=== PATIENT | male | born 1965 | race Caucasian/White ===

== ENCOUNTER 2024-10-26 12:42 | Outpatient (CLI) | payer OTHER, SELFPAY | END 2024-10-26 12:43 | disposition home or self-care (01) | LOC: WOUND 12:43 | PROVIDERS: PCP Family Medicine; Visit Provider Nurse Practitioner Family | DX: E11.621 Type 2 diabetes mellitus with foot ulcer (principal); E11.42 Type 2 diabetes mellitus with diabetic polyneuropathy; L97.522 Non-pressure chronic ulcer of other part of left foot with fat layer exposed; M13.872 Other specified arthritis, left ankle and foot; Z79.4 Long term (current) use of insulin; Z79.84 Long term (current) use of oral hypoglycemic drugs | CPT/HCPCS: 11042; G0463 ==

== ENCOUNTER 2024-11-02 12:44 | Outpatient (CLI) | payer OTHER, SELFPAY ==
[2024-11-02 14:02] LABS: Hematocrit* 36.8 % (37.0-53.0); Hemoglobin* 11.9 gm/dL (13.5-17.5); Immature Granulocytes Abs Auto 0.01 K/uL (0.00-0.30); Immature Granulocytes Pct Auto 0.1 %; Lymphocytes Absolute Auto 1.98 K/uL (0.90-2.90); Mean Corpuscular HGB Conc 32 gm/dL (32-36); Mean Corpuscular Hemoglobin 26 pg (26-34); Mean Corpuscular Volume 82 fL (80-100); RDW Coefficient of Variation % 14.4 % (11.5-15.5); Red Blood Count* 4.50 m/uL (4.30-5.90); White Blood Count* 7.66 K/uL (4.50-11.00)
[2024-11-02 14:03] LABS: Slide Review Reflex No
[2024-11-02 14:22] LABS: Albumin* 4.3 g/dL (3.3-5.0); Chloride* 100 mmol/L (96-114); Potassium* 4.7 mmol/L (3.6-5.1); Sodium* 134 mmol/L (135-149)
[2024-11-02 14:25] LABS: Alanine Aminotransferase* 31 U/L (4-50); Aspartate Amino Transferase* 36 U/L (12-35); Blood Urea Nitrogen* 38 mg/dL (7-30); Creatinine* 1.2 mg/dL (0.5-1.5); Estimated Glomerular Filt Rate 69 ml/min
[2024-11-02 14:26] LABS: Alkaline Phosphatase* 92 U/L (40-150); Anion Gap 8 mEq/L (7-15); Bilirubin Total* 0.4 mg/dL (0.1-1.5); Calcium* 9.4 mg/dL (8.4-10.6); Carbon Dioxide* 26 mmol/L (20-32); Glucose* 197 mg/dL (60-115); Total Protein* 7.3 g/dL (6.0-8.3)
[2024-11-02 15:00] LABS: Erythrocyte SedimentationRate* 17 mm/hr (2-15)
== END 2024-11-02 12:45 | disposition home or self-care (01) ==
LOC: WOUND 12:44
PROVIDERS: PCP Family Medicine; Visit Provider Nurse Practitioner Family
DX: E11.621 Type 2 diabetes mellitus with foot ulcer (principal); E11.42 Type 2 diabetes mellitus with diabetic polyneuropathy; L97.522 Non-pressure chronic ulcer of other part of left foot with fat layer exposed; M13.872 Other specified arthritis, left ankle and foot; Z79.84 Long term (current) use of oral hypoglycemic drugs
CPT/HCPCS: 11042; 36415; 73630; 80053; 83036; 85025; 85651; 86140; 87070; 87186

== ENCOUNTER 2024-11-02 13:42 | Outpatient (CLI) | payer OTHER, SELFPAY ==
--- NOTE | 2024-11-02 14:00 | CRLHL7_ITS ---
For Patients: As a result of the Century Cures Act, medical imaging exams and procedure reports are released immediately into your electronic medical record. You may view this report before your referring provider. If you have questions, please contact your health care provider. Indication: Osteomyelitis Technique: Left foot 3 views Comparison: 07/31/2024 Findings: Vascular calcifications are present. Mild spurring at the 1st MTP joint. Midfoot alignment is normal. Calcaneal spurs. Dorsal hypertrophic change at the midfoot. No cortical destruction or periostitis. Lateral forefoot soft tissue infection with ulceration. Impression: No evidence of osteomyelitis. Dictated by Khris Adames MD @ 11/02/2024 3:20:56 PM (Electronically Signed)
== END 2024-11-02 13:43 | disposition home or self-care (01) ==
LOC: RAD 13:43
PROVIDERS: PCP Family Medicine; Visit Provider Nurse Practitioner Family
DX: E11.621 Type 2 diabetes mellitus with foot ulcer (principal)
CPT/HCPCS: 73630

== ENCOUNTER 2024-11-09 12:44 | Outpatient (CLI) | payer OTHER, SELFPAY | END 2024-11-09 12:45 | disposition home or self-care (01) | LOC: WOUND 12:44 | PROVIDERS: PCP Family Medicine; Visit Provider Nurse Practitioner Family | DX: E11.621 Type 2 diabetes mellitus with foot ulcer (principal); E11.42 Type 2 diabetes mellitus with diabetic polyneuropathy; L97.522 Non-pressure chronic ulcer of other part of left foot with fat layer exposed; M13.872 Other specified arthritis, left ankle and foot; M25.375 Other instability, left foot; Z79.84 Long term (current) use of oral hypoglycemic drugs | CPT/HCPCS: 11042 ==

== ENCOUNTER 2024-11-16 12:45 | Outpatient (CLI) | payer OTHER, SELFPAY ==
--- NOTE | 2024-11-16 13:45 | CRLHL7_ITS ---
For Patients: As a result of the Cures Act, medical imaging exams and procedure reports are released immediately into your electronic medical record. You may view this report before your referring provider. If you have questions, please contact your health care provider. Indication: Toe wound Technique: Right foot 3 views Comparison: None Findings: No fracture, periostitis or cortical destruction. No soft tissue gas. Small calcaneal spurs. Vascular calcifications. Midfoot alignment is normal. Impression: No evidence of osteomyelitis. Dictated by Khris Adames MD @ 11/17/2024 10:54:59 AM (Electronically Signed)
== END 2024-11-16 12:46 | disposition home or self-care (01) ==
PROVIDERS: PCP Family Medicine; Visit Provider Nurse Practitioner Family
DX: E11.621 Type 2 diabetes mellitus with foot ulcer (principal); E11.42 Type 2 diabetes mellitus with diabetic polyneuropathy; L97.522 Non-pressure chronic ulcer of other part of left foot with fat layer exposed; S91.104A Unspecified open wound of right lesser toe(s) without damage to nail, initial encounter; M13.872 Other specified arthritis, left ankle and foot; M25.375 Other instability, left foot; Z79.84 Long term (current) use of oral hypoglycemic drugs
CPT/HCPCS: 11042; 73630; G0463

== ENCOUNTER 2024-11-23 12:39 | Outpatient (CLI) | payer OTHER, SELFPAY | END 2024-11-23 12:40 | disposition home or self-care (01) | LOC: WOUND 12:39 | PROVIDERS: PCP Family Medicine; Visit Provider Nurse Practitioner Family | DX: E11.621 Type 2 diabetes mellitus with foot ulcer (principal); L97.522 Non-pressure chronic ulcer of other part of left foot with fat layer exposed; S91.104A Unspecified open wound of right lesser toe(s) without damage to nail, initial encounter; M13.872 Other specified arthritis, left ankle and foot; M25.375 Other instability, left foot; Z79.84 Long term (current) use of oral hypoglycemic drugs | CPT/HCPCS: 11042 ==

== ENCOUNTER 2024-11-30 12:41 | Outpatient (CLI) | payer OTHER, SELFPAY | END 2024-11-30 12:42 | disposition home or self-care (01) | LOC: WOUND 12:41 | PROVIDERS: PCP Family Medicine | DX: E11.621 Type 2 diabetes mellitus with foot ulcer (principal); L97.522 Non-pressure chronic ulcer of other part of left foot with fat layer exposed; S91.104A Unspecified open wound of right lesser toe(s) without damage to nail, initial encounter; M13.872 Other specified arthritis, left ankle and foot; M25.375 Other instability, left foot; Z79.84 Long term (current) use of oral hypoglycemic drugs | CPT/HCPCS: 11042; 97597 ==

== ENCOUNTER 2024-12-07 12:43 | Outpatient (CLI) | payer OTHER, SELFPAY | END 2024-12-07 12:44 | disposition home or self-care (01) | LOC: WOUND 12:43 | PROVIDERS: PCP Family Medicine | DX: E11.621 Type 2 diabetes mellitus with foot ulcer (principal); L97.522 Non-pressure chronic ulcer of other part of left foot with fat layer exposed; M13.872 Other specified arthritis, left ankle and foot; M25.375 Other instability, left foot; Z79.84 Long term (current) use of oral hypoglycemic drugs | CPT/HCPCS: 11042 ==

== ENCOUNTER 2024-12-14 12:42 | Outpatient (CLI) | payer OTHER, SELFPAY | END 2024-12-14 12:43 | disposition home or self-care (01) | LOC: WOUND 12:42 | PROVIDERS: PCP Family Medicine; Visit Provider Nurse Practitioner Family | DX: E11.621 Type 2 diabetes mellitus with foot ulcer (principal); L97.522 Non-pressure chronic ulcer of other part of left foot with fat layer exposed; M13.872 Other specified arthritis, left ankle and foot; M25.375 Other instability, left foot; Z79.84 Long term (current) use of oral hypoglycemic drugs | CPT/HCPCS: 97597 ==

== ENCOUNTER 2024-12-21 12:43 | Outpatient (CLI) | payer OTHER, SELFPAY | END 2024-12-21 12:44 | disposition home or self-care (01) | LOC: WOUND 12:43 | PROVIDERS: PCP Family Medicine; Visit Provider Nurse Practitioner Family | DX: E11.621 Type 2 diabetes mellitus with foot ulcer (principal); L97.522 Non-pressure chronic ulcer of other part of left foot with fat layer exposed; M13.872 Other specified arthritis, left ankle and foot; M25.375 Other instability, left foot; Z79.84 Long term (current) use of oral hypoglycemic drugs | CPT/HCPCS: 97597 ==

== ENCOUNTER 2024-12-28 12:53 | Outpatient (CLI) | payer OTHER, SELFPAY | END 2024-12-28 12:54 | disposition home or self-care (01) | LOC: WOUND 12:53 | PROVIDERS: PCP Family Medicine; Visit Provider Nurse Practitioner Family | DX: E11.621 Type 2 diabetes mellitus with foot ulcer (principal); E11.42 Type 2 diabetes mellitus with diabetic polyneuropathy; L97.522 Non-pressure chronic ulcer of other part of left foot with fat layer exposed; L97.818 Non-pressure chronic ulcer of other part of right lower leg with other specified severity; M13.872 Other specified arthritis, left ankle and foot; L85.3 Xerosis cutis; Z79.4 Long term (current) use of insulin; Z79.84 Long term (current) use of oral hypoglycemic drugs | CPT/HCPCS: 97597; G0463 ==

== ENCOUNTER 2025-01-04 12:44 | Outpatient (CLI) | payer OTHER, SELFPAY | END 2025-01-04 12:45 | disposition home or self-care (01) | LOC: WOUND 12:44 | PROVIDERS: PCP Family Medicine; Visit Provider Nurse Practitioner Family | DX: E11.621 Type 2 diabetes mellitus with foot ulcer (principal); E11.42 Type 2 diabetes mellitus with diabetic polyneuropathy; L97.522 Non-pressure chronic ulcer of other part of left foot with fat layer exposed; L85.3 Xerosis cutis; S80.812A Abrasion, left lower leg, initial encounter; W22.8XXA Striking against or struck by other objects, initial encounter; Z79.84 Long term (current) use of oral hypoglycemic drugs | CPT/HCPCS: 11042; G0463 ==

== ENCOUNTER 2025-01-18 12:40 | Outpatient (CLI) | payer OTHER, SELFPAY ==
--- NOTE | 2025-01-18 13:45 | CRLHL7_ITS ---
For Patients: As a result of the Cures Act, medical imaging exams and procedure reports are released immediately into your electronic medical record. You may view this report before your referring provider. If you have questions, please contact your health care provider. Indication: Non-pressure chronic ulcer Technique: Left foot 3 views Comparison: 11/02/2024 Findings: Plantar and posterior calcaneal spurs. Vascular calcifications. Dorsal spurring at the midfoot. Narrowing and spurring at the 1st MCP joint. No fracture. No acute periostitis or cortical destruction. Impression: No evidence of acute osteomyelitis. Dictated by Khris Adames MD @ 01/18/2025 3:33:54 PM (Electronically Signed)
== END 2025-01-18 12:41 | disposition home or self-care (01) ==
PROVIDERS: PCP Family Medicine; Visit Provider Nurse Practitioner Family
DX: E11.621 Type 2 diabetes mellitus with foot ulcer (principal); E11.42 Type 2 diabetes mellitus with diabetic polyneuropathy; L97.522 Non-pressure chronic ulcer of other part of left foot with fat layer exposed; Z79.4 Long term (current) use of insulin; Z79.84 Long term (current) use of oral hypoglycemic drugs
CPT/HCPCS: 11042; 73630; 87070; 87186